=== PATIENT | male | born 1965 | race Caucasian/White ===

== ENCOUNTER 2016-11-27 04:54 | Emergency (ER) | payer OTHER ==
[~2016-11-27 04:54] MED LIST: AMLODIPINE5 M1 PO; APAP/HYDROCODON1 T13 PO; APR25 PO; APR50 PO; ASPI-COR81 M3 PO; ASPIR 8181 MG PO; ASPIR-LOW81 M1 PO; ASPIRIN ADULT L81 M5 PO; ATENOLOL25 PO; ATENOLOL50 MG PO; CARVEDILOL12.5 M1 PO; COL100 PO; COZAAR100 MG PO; FUROSEMIDE40 MG PO; GLU5 PO; HUMALOG100 U/ML SQ; HUMI SC; HYDRALAZINE HCL25 MG PO; HYDRALAZINE HYD10 M1 PO; HYDROCODONE BIT1 T11 PO; L40 PO; LANTI SQ; LANTUS SOLOS100 U/M1 SQ; LASIX40 MG PO; LASIX80 MG PO; LISINOPRIL20 MG PO; MAC100 PO; MAG PO; METFORMIN HCL1000 MG PO; METFORMIN500 M1 PO; METFORMIN500 MG PO; METOPROLOL SUCC25 M1 PO; METOPROLOL TART25 M1 PO; MEVACOR20 MG PO; NOR10 PO; NORCO1 TA2 PO; NOVOLIN 70/301.5 M1 SC; OMEPRAZOLE DR20 M1 PO; POTASSIUM CHLO10 MEQ PO; POTASSIUM CHLO20 ME1 PO; POTASSIUM CITR10 MEQ PO; POTASSIUM CITRATE PO; POTASSIUM20 MEQ PO; PRI20 PO; SIMVASTATIN10 M1 PO; SIMVASTATIN20 M1 PO; SIMVASTATIN40 MG PO; SIMVASTATIN5 M1 PO; TRAMADOL HCL50 MG PO; UROCIT-K 1010 MEQ PO; ZESTRIL20 MG PO; ZESTRIL20 PO; ZOCOR10 MG PO
[2016-11-27 05:39] LABS: BASOPHIL % 0.7 % (0-2); PLATELET COUNT 220 x10^3mcL (130-400)
[2016-11-27 05:41] LABS: RED CELL DISTRIBUTION WIDTH 16.9 % (11.5-14.5)
[2016-11-27 05:59] LABS: BILIRUBIN TOTAL 0.4 mg/dL (0.20-1.00); CALCIUM 8.6 mg/dL (8.5-10.1); CARBON DIOXIDE 28.5 mmol/L (21-32); TOTAL PROTEIN, SERUM 7.2 g/dL (6.4-8.2)
[2016-11-27 06:00] LABS: ALBUMIN 3.3 g/dL (3.4-5.0); CREATININE SERUM 8.5 mg/dL (0.7-1.3)
[2016-11-27 06:03] LABS: CK-MB 0.6 ng/mL (0-3.6)
[2016-11-27 08:20] VITALS: BP 159/91
== END 2016-11-27 08:20 | disposition home or self-care (01) ==
LOC: ED 04:54
PROVIDERS: Emergency Medicine
DX: G44.209 Tension-type headache, unspecified, not intractable (principal); E11.22 Type 2 diabetes mellitus with diabetic chronic kidney disease; I12.9 Hypertensive chronic kidney disease with stage 1 through stage 4 chronic kidney disease, or unspecified chronic kidney disease; N18.9 Chronic kidney disease, unspecified
CPT/HCPCS: 36415; 83880; J0780; J1885; Q0092

== ENCOUNTER 2017-06-04 11:22 | Emergency (ER) | payer MEDICAID ==
[~2017-06-04] VITALS: Ht 165.1 cm; Wt 100.7 kg
[2017-06-04 11:53] VITALS: Ht 165.1 cm; Wt 100.7 kg
[2017-06-04 12:29] LABS: BASOPHIL % 1.6 % (0-2); PLATELET COUNT 175 x10^3mcL (130-400)
[2017-06-04 12:53] LABS: BILIRUBIN TOTAL 0.41 mg/dL (0.20-1.00); CALCIUM 8.8 mg/dL (8.5-10.1); CARBON DIOXIDE 35.5 mmol/L (21-32); POTASSIUM SERUM 3.7 mmol/L (3.5-5.1); TOTAL PROTEIN, SERUM 8.1 g/dL (6.4-8.2)
[2017-06-04 12:56] LABS: ALBUMIN 3.2 g/dL (3.4-5.0)
[2017-06-04 12:57] LABS: CREATININE SERUM 5.3 mg/dL (0.7-1.3)
[2017-06-04 15:26] VITALS: BP 159/80
== END 2017-06-04 15:38 | disposition home or self-care (01) ==
LOC: ED 11:22
PROVIDERS: Emergency Medicine
DX: M65.222 Calcific tendinitis, left upper arm (principal); E11.22 Type 2 diabetes mellitus with diabetic chronic kidney disease; I12.0 Hypertensive chronic kidney disease with stage 5 chronic kidney disease or end stage renal disease; N18.6 End stage renal disease; E78.00 Pure hypercholesterolemia, unspecified
CPT/HCPCS: J1885; J3010; Q0092

== ENCOUNTER 2017-10-15 15:18 | Inpatient (IN) | payer MEDICAID ==
[~2017-10-15] VITALS: Ht 165.1 cm; Wt 101.3 kg
[~2017-10-15 15:18] MED LIST changes: +HYDRALAZINE HY100 MG
[2017-10-15 15:26] VITALS: Ht 165.1 cm; Wt 101.3 kg
[2017-10-15 17:08] LABS: BASOPHIL % 0.5 % (0-2); PLATELET COUNT 178 x10^3mcL (130-400)
[2017-10-15 17:10] LABS: RED CELL DISTRIBUTION WIDTH 14.7 % (11.5-14.5)
[2017-10-15 17:18] LABS: ALBUMIN 3.7 g/dL (3.4-5.0); BILIRUBIN TOTAL 0.4 mg/dL (0.20-1.00); CALCIUM 8.9 mg/dL (8.5-10.1); POTASSIUM SERUM 3.8 mmol/L (3.5-5.1)
[2017-10-15 17:30] LABS: TOTAL PROTEIN, SERUM 8.8 g/dL (6.4-8.2)
[2017-10-15 19:21] VITALS: BP 143/78
[2017-10-15 19:42] LABS: AMYLASE 126 U/L (25-115); LIPASE 271 IU/L (73-393); MAGNESIUM 2.4 mg/dL (1.8-2.4); PHOSPHOROUS 4.2 mg/dL (2.5-4.9)
[2017-10-15 19:43] LABS: CHOLESTEROL 205 mg/dL (<200); CHOLESTEROL/HDL RATIO 7.1; HDL CHOLESTEROL 29 mg/dL (40-60); TRIGLYCERIDES 887 mg/dL (<150)
[2017-10-15 19:52] LABS: T3 TOTAL 0.89 ng/mL
[2017-10-15 20:34] LABS: FREE T4 0.87 ng/dL (0.76-1.46); FREE THYROXINE INDEX 2.3 ug/dL (1.4-4.5); T4(THYROXINE) 7.1 ug/dL (4.7-13.3)
[2017-10-16 04:40] LABS: BASOPHIL % 0.6 % (0-2); PLATELET COUNT 158 x10^3mcL (130-400)
[2017-10-16 04:41] LABS: RED CELL DISTRIBUTION WIDTH 14.9 % (11.5-14.5)
[2017-10-16 04:46] LABS: CALCIUM 8.6 mg/dL (8.5-10.1); CARBON DIOXIDE 28.4 mmol/L (21-32); MAGNESIUM 2.5 mg/dL (1.8-2.4); PHOSPHOROUS 5.3 mg/dL (2.5-4.9); POTASSIUM SERUM 3.9 mmol/L (3.5-5.1)
[2017-10-16 04:51] LABS: CREATININE SERUM 7.9 mg/dL (0.7-1.3)
[2017-10-16 06:36] VITALS: BP 132/84
[2017-10-16 07:55] LABS: UA SPECIFIC GRAVITY 1.025 (1.005-1.035); microscopic required? YES; urine erythrocyte TRACE (NEGATIVE)
[2017-10-16 08:16] LABS: AMPHETAMINE QUAL UR NONE DETECTED (NEG <=1000)
[2017-10-16 09:17] VITALS: BP 174/92
[2017-10-16 14:10] VITALS: BP 147/77
[2017-10-16 17:43] VITALS: BP 147/77
[2017-10-16 17:53] VITALS: BP 145/73
== END 2017-10-16 19:10 | disposition home or self-care (01) | DRG 203 ==
LOC: ED 15:18 → DU 18:26
PROVIDERS: Family Medicine
PROC: 5A1D70Z Performance of Urinary Filtration, Intermittent, Less than 6 Hours Per Day (ICD-10-PCS; principal; 2017-10-16)
DX: M94.0 Chondrocostal junction syndrome [Tietze] (principal); N17.0 Acute kidney failure with tubular necrosis; I12.0 Hypertensive chronic kidney disease with stage 5 chronic kidney disease or end stage renal disease; E11.21 Type 2 diabetes mellitus with diabetic nephropathy; E11.22 Type 2 diabetes mellitus with diabetic chronic kidney disease; N18.6 End stage renal disease; E78.00 Pure hypercholesterolemia, unspecified; E78.1 Pure hyperglyceridemia; E78.5 Hyperlipidemia, unspecified; D63.1 Anemia in chronic kidney disease; E11.65 Type 2 diabetes mellitus with hyperglycemia; E66.9 Obesity, unspecified; Z99.2 Dependence on renal dialysis; Z79.899 Other long term (current) drug therapy; Z83.3 Family history of diabetes mellitus; Z82.49 Family history of ischemic heart disease and other diseases of the circulatory system; Z68.37 Body mass index [BMI] 37.0-37.9, adult
CPT/HCPCS: 83880; 84439; J1815; J7030; J7040; Q0092

== ENCOUNTER 2017-12-20 23:55 | Emergency (ER) | payer MEDICAID ==
[~2017-12-20] VITALS: Ht 162.6 cm; Wt 100.3 kg
[2017-12-20 23:57] VITALS: Ht 162.6 cm; Wt 100.3 kg
[2017-12-21 01:20] VITALS: BP 128/74
== END 2017-12-21 01:20 | disposition home or self-care (01) ==
LOC: ED 23:55
DX: T15.01XA Foreign body in cornea, right eye, initial encounter (principal); X58.XXXA Exposure to other specified factors, initial encounter; Y93.89 Activity, other specified; Y92.89 Other specified places as the place of occurrence of the external cause; Y99.8 Other external cause status

== ENCOUNTER 2019-04-12 09:14 | Emergency (ER) | payer MEDICAID ==
[~2019-04-12] VITALS: Ht 162.6 cm; Wt 100.2 kg
[2019-04-12 09:32] VITALS: Ht 162.6 cm; Wt 100.2 kg
[2019-04-12 11:00] LABS: BASOPHIL % 0.6 % (0-2); PLATELET COUNT 184 x10^3mcL (130-400); RED CELL DISTRIBUTION WIDTH 13.6 % (11.5-14.5)
[2019-04-12 11:39] LABS: CALCIUM 8.9 mg/dL (8.5-10.1); CARBON DIOXIDE 31.4 mmol/L (21-32); TOTAL PROTEIN, SERUM 7.6 g/dL (6.4-8.2)
[2019-04-12 11:40] LABS: ALBUMIN 3.3 g/dL (3.4-5.0)
[2019-04-12 11:56] LABS: BILIRUBIN TOTAL 0.34 mg/dL (0.20-1.00); CREATININE SERUM 7.9 mg/dL (0.7-1.3)
[2019-04-12 14:35] VITALS: BP 168/92
== END 2019-04-12 15:09 | disposition home or self-care (01) ==
LOC: ED 09:14
PROVIDERS: Emergency Medicine
DX: R16.0 Hepatomegaly, not elsewhere classified (principal); E11.22 Type 2 diabetes mellitus with diabetic chronic kidney disease; I12.0 Hypertensive chronic kidney disease with stage 5 chronic kidney disease or end stage renal disease; N18.6 End stage renal disease
CPT/HCPCS: 36415; J2270; J2405; Q0092